=== PATIENT | female | born 2005 | race Caucasian/White ===

== ENCOUNTER 2023-09-25 04:36 | Emergency (ER) | payer OTHER ==
[2023-09-25] MEDS: Take Home: Ondansetron 4 MG Tab.DIS, 5 Tab Pack PO ONE (06:12)
== END 2023-09-25 06:15 | disposition home or self-care (01) ==
LOC: LL.ED 04:36
DX: A09 Infectious gastroenteritis and colitis, unspecified (principal); Z79.899 Other long term (current) drug therapy
CPT/HCPCS: 99283; Q0162